=== PATIENT | male | born 1990 | race African-American/Black ===

== ENCOUNTER → 2018-04-07 | Outpatient (CLI) | payer OTHER ==
[2018-04-07 13:40] LABS: BASO % 0.7 % (0.0-1.0); EOS # 0.3 10^3/uL (0.0-0.50); EOS % 8.3 % (0.0-3.0); HEMATOCRIT 40.6 % (42.0-52.0); HEMOGLOBIN 12.8 g/dl (13.5-17.5); LYMPH # 1.7 10^3/uL (1.5-6.5); LYMPH % 40.6 % (24.0-44.0); MEAN CORPUSCULAR HEMOGLOBIN 26.3 pg (27.0-33.0); MEAN CORPUSCULAR HGB CONC 31.5 g/dl (32.0-36.5); MEAN CORPUSCULAR VOLUME 83.4 fl (80.0-96.0); MONO # 0.4 10^3/uL (0.0-0.8); MONO % 8.6 % (0.0-5.0); NEUTROPHILS # 1.7 10^3/uL (1.8-7.7); NEUTROPHILS % 41.6 % (36.0-66.0); PLATELET COUNT, AUTOMATED 307 10^3/uL (150-450); RED BLOOD COUNT 4.87 10^6/uL (4.30-6.10); WHITE BLOOD COUNT 4.1 10^3/uL (4.0-10.0)
[2018-04-07 14:16] LABS: ALT/SGPT 25 U/L (12-78); BILIRUBIN,TOTAL 0.3 MG/DL (0.2-1.0); BLOOD UREA NITROGEN 20 MG/DL (7-18); CARBON DIOXIDE LEVEL 30 MEQ/L (21-32); CHLORIDE LEVEL 102 MEQ/L (98-107); CREATININE FOR GFR 1.05 MG/DL (0.70-1.30); GLOMERULAR FILTRATION RATE > 60.0 (>60); GLUCOSE, FASTING 91 MG/DL (70-100); POTASSIUM SERUM 4.3 MEQ/L (3.5-5.1); SODIUM LEVEL 140 MEQ/L (136-145)
[2018-04-07 14:17] LABS: ALBUMIN 3.8 GM/DL (3.2-5.2); FREE T4 1.09 NG/DL (0.76-1.46); IMMUNOGLOBULIN A 292 MG/DL (70-400); TOTAL PROTEIN 7.4 GM/DL (6.4-8.2)
== END ==
LOC: M LAB 13:02
PROVIDERS: ATTEND Internal Medicine Gastroenterology
DX: R10.84 Generalized abdominal pain (principal)

== ENCOUNTER → 2018-04-27 | Outpatient (CLI) | payer OTHER ==
[~2018-04-27] MED LIST: GLUCAGON FOR INJ 1 MG VIAL (J1610) As Ordered ONE; ISOVUE-370 76% 100ML VIAL (Q9967) As Ordered ONE; OMEP40CA2 PO; VoLumen 0.1% SUSPENSION 450ML BOTTLE As Ordered ONE
--- NOTE | 2018-04-28 06:28 | REP ---
Clinical: Generalized abdominal pain. Technique: Axial contrast enhanced images of the abdomen and pelvis using low density oral contrast along with intravenous contrast enhancement as per CT enterography technique. Images obtained in arterial and portal venous phases of enhancement along with coronal and sagittal re-formations. Findings: Lung bases are clear. Visualized heart and pericardium normal. Liver, spleen, pancreas, gallbladder, bilateral adrenal glands and kidneys are normal. The enteric system including stomach, small and large bowel is unremarkable and without obstruction or acute inflammatory process. Normal cecum, appendix and terminal ileum identified in the right lower quadrant. Mildly prominent mesenteric and right lower quadrant pericecal lymph nodes raise the possibility of underlying adenitis. Pelvis demonstrates a normal bladder and age appropriate prostate/seminal vesicles. Normal sigmoid colon identified. No pelvic fluid or ascites. No free air. No retroperitoneal adenopathy. Abdominal aorta and vasculature appear normal. The evidence for chronic bilateral L5 spondylolysis without spondylolisthesis. Impression: 1. Mildly prominent mesenteric and right lower quadrant lymph nodes raise the possibility of adenitis. 2. Chronic bilateral L5 spondylolysis without spondylolisthesis. 3. No further acute abdominopelvic pathology appreciated. Electronically Signed by Han Charlton MD 04/28/2018 06:20 A
== END ==
LOC: M RAD 14:00
PROVIDERS: ATTEND Internal Medicine Gastroenterology
DX: M47.896 Other spondylosis, lumbar region (principal); R59.0 Localized enlarged lymph nodes; R10.84 Generalized abdominal pain
CPT/HCPCS: 74177; J1610; Q9967

== ENCOUNTER 2018-05-26 10:56 | Day surgery (SDC) | payer OTHER ==
[~2018-05-26] VITALS: Ht 167.6 cm; Wt 69.4 kg
[~2018-05-26 10:56] MED LIST changes: -GLUCAGON FOR INJ 1 MG VIAL (J1610) As Ordered ONE; -ISOVUE-370 76% 100ML VIAL (Q9967) As Ordered ONE; +LIDOCAINE 2% INJ 100 MG/5 ML SDV (FOR ANES.) As Ordered ONE; +NS 1,000 ML IV ONE; +PROPOFOL 500 MG/50 ML VIAL As Ordered ONE; -VoLumen 0.1% SUSPENSION 450ML BOTTLE As Ordered ONE
--- NOTE | 2018-05-26 12:03 | ROOR ---
Patient Name: Remy Roberto Procedure Date: 05/26/2018 11:37 AM Date of : 1990 Age: 27 Room: [facility] Gender: Male Note Status: Finalized Procedure: Upper GI endoscopy Indications: Generalized abdominal pain, Vomiting, Weight loss Providers: Sathish SALINAS MD Referring MD: MIHAI HOLM MD Requesting Provider: Medicines: Monitored Anesthesia Care Complications: No immediate complications. Procedure: Pre-Anesthesia Assessment: - The heart rate, respiratory rate, oxygen saturations, blood pressure, adequacy of pulmonary ventilation, and response to care were monitored throughout the procedure. The Endoscope was introduced through the mouth, and advanced to the second part of duodenum. The upper GI endoscopy was accomplished without difficulty. The patient tolerated the procedure well. Findings: The examined esophagus was normal. Diffuse mild inflammation was found in the gastric antrum. Biopsies were taken with a cold forceps for Helicobacter pylori testing. The exam of the stomach was otherwise normal. The examined duodenum was normal. Impression: - Normal esophagus. - Minimal gastritis. Biopsied. - Stomach is otherwise normal. - Normal examined duodenum. Recommendation: - Telephone endoscopist for pathology results in 2 weeks. Sathish Salinas MD Sathish SALINAS MD 05/26/2018 12:03:08 PM This report has been signed electronically. Number of Addenda: 0 Note Initiated On: 05/26/2018 11:37 AM Estimated Blood Loss: Estimated blood loss: none.
[2018-05-26] MEDS ORDERED: PROPOFOL 200 MG/20 ML VIAL As Ordered ONE (12:05)
--- NOTE | 2018-05-26 12:32 | ROOR ---
Patient Name: Remy Roberto Procedure Date: 05/26/2018 11:38 AM Date of : 1990 Age: 27 Room: [facility] Gender: Male Note Status: Finalized Procedure: Colonoscopy Indications: Generalized abdominal pain, Weight loss Providers: Sathish SALINAS MD Referring MD: MIHAI HOLM MD Requesting Provider: Medicines: Monitored Anesthesia Care Complications: No immediate complications. Procedure: Pre-Anesthesia Assessment: - The heart rate, respiratory rate, oxygen saturations, blood pressure, adequacy of pulmonary ventilation, and response to care were monitored throughout the procedure. The Colonoscope was introduced through the anus and advanced to 10 cm into the ileum. The colonoscopy was performed without difficulty. The patient tolerated the procedure well. The quality of the bowel preparation was good. Findings: The perianal and digital rectal examinations were normal. Inflammation characterized by confluent ulcerations, deep ulcerations and serpentine ulcerations was found as patches of various sizes surrounded by normal mucosa as patches of various sizes surrounded by normal mucosa in the splenic flexure, as patches of various sizes surrounded by normal mucosa in the ascending colon, as patches of various sizes surrounded by normal mucosa at the cecum and as patches of various sizes surrounded by normal mucosa in the terminal ileum. This was moderate in severity, and when compared to previous examinations, the findings are new. Biopsies were taken with a cold forceps for histology. Fluid aspiration for microbiology was performed. Impression: - Crohn's disease (likely), with ileitis and colitis. ( rule out infectious/viral). Scattered small and large, serpentine shallow and deep ulcerations and Inflammation were found in the splenic flexure, in the ascending colon, at the cecum and in the terminal ileum. These are surrounded by normal appearing mucosa. This was moderate in severity. Biopsied. - Fluid aspiration was performed for micro. - Biopsies performed for histo. Recommendation: - Telephone endoscopist for pathology results in 2 weeks. - Use prednisone (tapering dose) PO once a day. - Return to my office in 2 weeks. - (the script was sent to your pharmacy on file) - To discuss todays findings, my office will call you in the next few days to schedule a follow up appointment. Sathish Salinas MD Sathish SALINAS MD 05/26/2018 12:32:07 PM This report has been signed electronically. Number of Addenda: 0 Note Initiated On: 05/26/2018 11:38 AM Estimated Blood Loss: Estimated blood loss: none.
[2018-05-26 13:15] VITALS: BP 137/66
== END 2018-05-26 13:29 | disposition home or self-care (01) ==
LOC: M OPP 10:56
PROVIDERS: ATTEND Internal Medicine Gastroenterology
DX: K50.80 Crohn's disease of both small and large intestine without complications (principal); K29.70 Gastritis, unspecified, without bleeding; R10.84 Generalized abdominal pain; R63.4 Abnormal weight loss; R11.10 Vomiting, unspecified

== ENCOUNTER → 2018-06-22 | Outpatient (CLI) | payer OTHER ==
[~2018-06-22] MED LIST changes: -LIDOCAINE 2% INJ 100 MG/5 ML SDV (FOR ANES.) As Ordered ONE; -NS 1,000 ML IV ONE; -PROPOFOL 500 MG/50 ML VIAL As Ordered ONE
[2018-06-22 11:56] LABS: C REACTIVE PROTEIN QUANTITATIV 2.69 MG/DL (0.00-0.30)
[2018-06-22 12:10] LABS: HEPATITIS B SURFACE ANTIBODY POSITIVE (POSITIVE); VITAMIN B12 LEVEL 491 PG/ML (247-911)
[2018-06-22 12:21] LABS: HEPATITIS B SURFACE ANTIGEN NEGATIVE (NEGATIVE)
[2018-06-22 12:49] LABS: HEPATITIS B CORE ANTIBODY IGM NEGATIVE (NEGATIVE); HEPATITIS C VIRUS ABY INDEX < 0.0 INDEX (<0.8)
[2018-06-22 12:50] LABS: HEPATITIS A ANTIBODY IGM NEGATIVE (NEGATIVE)
== END ==
LOC: M LAB 10:38
PROVIDERS: ATTEND Internal Medicine Gastroenterology
DX: K29.70 Gastritis, unspecified, without bleeding (principal); K50.818 Crohn's disease of both small and large intestine with other complication

== ENCOUNTER → 2018-10-05 | Outpatient (CLI) | payer OTHER ==
[2018-10-05 14:29] LABS: BASO % 0.8 % (0.0-1.0); EOS # 0.5 10^3/uL (0.0-0.50); EOS % 8.9 % (0.0-3.0); HEMATOCRIT 41.2 % (42.0-52.0); HEMOGLOBIN 13.5 g/dl (13.5-17.5); LYMPH # 2.5 10^3/uL (1.5-6.5); LYMPH % 50.1 % (24.0-44.0); MEAN CORPUSCULAR HGB CONC 32.8 g/dl (32.0-36.5); MEAN CORPUSCULAR VOLUME 85.3 fl (80.0-96.0); MONO # 0.5 10^3/uL (0.0-0.8); MONO % 9.1 % (0.0-5.0); NEUTROPHILS # 1.6 10^3/uL (1.8-7.7); NEUTROPHILS % 31.1 % (36.0-66.0); PLATELET COUNT, AUTOMATED 254 10^3/uL (150-450); RED BLOOD COUNT 4.83 10^6/uL (4.30-6.10)
[2018-10-05 15:00] LABS: ALBUMIN 3.9 GM/DL (3.2-5.2); ALT/SGPT 26 U/L (12-78); BILIRUBIN,TOTAL 0.3 MG/DL (0.2-1.0); BLOOD UREA NITROGEN 17 MG/DL (7-18); CARBON DIOXIDE LEVEL 32 MEQ/L (21-32); CHLORIDE LEVEL 105 MEQ/L (98-107); CREATININE FOR GFR 1.14 MG/DL (0.70-1.30); GLOMERULAR FILTRATION RATE > 60.0 (>60); GLUCOSE, FASTING 83 MG/DL (70-100); POTASSIUM SERUM 4.2 MEQ/L (3.5-5.1); SODIUM LEVEL 139 MEQ/L (136-145); TOTAL PROTEIN 7.6 GM/DL (6.4-8.2)
== END ==
LOC: M LAB 13:47
PROVIDERS: ATTEND Internal Medicine Gastroenterology
DX: K50.818 Crohn's disease of both small and large intestine with other complication (principal)

== ENCOUNTER → 2018-10-13 | Outpatient (REF) | payer OTHER | LOC: M LAB REF 12:32 | PROVIDERS: ATTEND Internal Medicine Gastroenterology | DX: K50.818 Crohn's disease of both small and large intestine with other complication (principal) ==